=== PATIENT | female | born 1955 | race Caucasian/White ===

== ENCOUNTER 2016-10-02 06:35 | Day surgery (SDC) | payer OTHER ==
[~2016-10-02 06:35] MED LIST: Famotidine IV* 10 MG/ML 2 ML (20 mg) IV ONE
[2016-10-02] MEDS ORDERED: Lidocaine 1% MPF wEPI 200,000* 30 ML SDV ONE (07:11)
[2016-10-02] MEDS ORDERED: Famotidine IV* 10 MG/ML 2 ML (20 mg) ONE (07:16)
[2016-10-02] MEDS ORDERED: Midazolam* 1 MG/ML 5 ML VIAL (5 MG) ONE (07:42)
[2016-10-02] MEDS ORDERED: fentaNYL* 50 MCG/ML 2 ML VIAL (100 MCG VIAL) ONE (07:42)
[2016-10-02] MEDS ORDERED: KETAMINE HCL* 50 MG/ML 10 ML VIAL ONE (07:42)
[2016-10-02] MEDS ORDERED: ceFAZolin 2 GM PREMIX(*) 2 GM/50 ML BAG IVPB ONE (07:52)
[2016-10-02] MEDS ORDERED: PROCHLORPERAZINE INJ 5 MG/ML 2 ML VIAL IV PRN (08:09)
[2016-10-02] MEDS ORDERED: oxyCODONE TAB* 5 MG TAB PO PRN (08:09)
[2016-10-02] MEDS ORDERED: Ondansetron INJ* 2 MG/ML VIAL ONE (08:43)
[2016-10-02] MEDS ORDERED: Lidocaine 2% PF * 5 ML VIAL ONE (08:43)
[2016-10-02] MEDS ORDERED: PROCHLORPERAZINE INJ 5 MG/ML 2 ML VIAL ONE (08:43)
[2016-10-02] MEDS ORDERED: Propofol* 10 MG/ML 20 ML BTL IV PUSH ONE (08:43)
[2016-10-02] MEDS ORDERED: Dexamethasone IV* 4 MG/ML 1 ML (4 MG) ONE (08:43)
--- NOTE | 2016-10-02 08:54 | SURGPN ---
Brief Operative Note - Surgery Procedures: Procedures Pre-OP Diagnoses: Endometrioal Ca Post-op Diagnosis: same Procedure: Insertion of powerport, needle in Surgeon: Jackie Asst: none Anethesia: local, MAC Rumford EBL: minimal IVF: 600cc LR Specimen: none Drains: none 8Fr single lumen power port via R SCV
--- NOTE | 2016-10-02 09:12 | RAD ---
INDICATION: chest port placement COMPARISONS: None relevant TECHNIQUE: Fluoroscopy was provided for a vascular access procedure. Total fluoroscopy time is: 64.8 seconds FINDINGS: A single spot image demonstrates a right-sided chest port from a subclavian approach. The tip is not well visualized on the submitted images. IMPRESSION: FLUOROSCOPY WAS PROVIDED FOR A VASCULAR ACCESS PROCEDURE CPT II Codes: 6045F
[2016-10-02 10:11] VITALS: BP 116/64
--- NOTE | 2016-10-03 00:43 | OP ---
CC: Chuck Bahena MD; [facility]; Yanique Pacheco MD OPERATIVE REPORT: DATE OF OPERATION: 10/02/16 DATE OF : 51 SURGEON: Edu Mejia MD TENNIS INSTRUCTOR: None. ANESTHESIOLOGIST: Dr. Brewer. ANESTHESIA: Local MAC. PRE-OPERATIVE DIAGNOSIS: Recurrent endometrial cancer. POST-OPERATIVE DIAGNOSIS: Recurrent endometrial cancer. OPERATIVE PROCEDURE: Insertion of PowerPort needle. PORT: An 8-English PowerPort inserted via the right subclavian vein. COMPLICATIONS: None. DESCRIPTION OF PROCEDURE: The patient was identified in the preoperative area. The case was discuss ed and consent signed. She understood the risks, benefits, and alternatives. She was brought to [facility] operating room and placed on the operating table in a supine position. Preoperative antibiotics w ere given. Sequential devices were placed on bilateral lower extremities. Gentle sedation was give n and the patient's right upper neck and chest were prepped and draped in a standard surgical fashio n. A time-out was performed. The right subclavian vein was accessed and a wire inserted under fluoroscopy to ensure the positioni ng in the superior vena cava. An incision was made inferior to this and the pocket made for the por t. The wire was then brought into this incision and a split-away catheter inserted under fluoroscop y into the vein. An 8- English tubing was then inserted. The split-away catheter was removed. Tubi ng was cut to size ensuring this under fluoroscopy. This was then connected to the PowerPort and in serted into the pocket. Upon trying to place the hub onto the PowerPort, it pulled the tubing out a pproximately 2 to 3 cm, making this not in the appropriate position and the position was made to uti lize another PowerPort. The tubing was then cut, wire inserted under fluoroscopy. The remainder of the tubing removed. A new split-away catheter inserted and a new set of 8-English tubing inserted. It was again cut to size, placed on to the brand new PowerPort along with the hub and sutured into the pocket at the lateral, medial aspect, and at the hub. Wound was irrigated. The port was access ed. Blood was easily aspirated and then the port was flushed with saline. The defect was reapproxi mated with 3-0 Polysorb sutures followed by 4-0 Monocryl subcuticular suture. The Steri-Strips and sterile dressing was then applied. The port was then accessed. It aspirated the blood easily and t hen we flushed it with heparinized saline. The needle was remained in and then was dressed to the c hest wall with gauze and paper tape. The patient tolerated the procedure well and was transferred t o the PACU in stable condition. [id number] #: [id number]
== END 2016-10-02 10:07 | disposition home or self-care (01) ==
LOC: OR 06:35
PROVIDERS: ATTEND Surgery
DX: C54.1 Malignant neoplasm of endometrium (principal); J45.909 Unspecified asthma, uncomplicated
CPT/HCPCS: 71010; 76000; C1788; J0690; J0780; J1100; J1642; J2001; J2250; J2405; J2704; J3010

== ENCOUNTER 2017-06-29 14:08 | Emergency (ER) | payer OTHER ==
[2017-06-29] MEDS ORDERED: Ibuprofen TAB* 800 MG PO ONE (17:14)
[2017-06-29] MEDS ORDERED: Oseltamivir CAP* 75 MG CAP PO ONE ×2 (17:36→17:43)
[2017-06-29 17:58] VITALS: BP 137/63
--- NOTE | 2017-06-29 18:04 | ED ---
Influenza-Like Illness - HPI Summary HPI Summary: Flu like sx x 2 days. WILSON, rhinorrhea, dry cough, aches, fever. Denies n/v/d, CP , SOB, dizziness. Decreased appetite. Took ibuprofen this AM but not since as she didn't want to mask her sx before coming here. Has not had anything to eat/ drink since here either hwoever feels she could eat/drink. Med hx: endometrial CA initally tx'd last year - takes hormone modulator currently and followed by Dr. Bahena. No issues at this time. - History of Current Complaint Chief Complaint: EDFluSymptoms Time Seen by Provider: 06/29/17 16:26 Hx Obtained From: Patient - Allergy/Home Medications Allergies/Adverse Reactions: Allergies Allergy/AdvReac Type Severity Reaction Status Date / Time MS Erythromycin Allergy Intermediate Hives Verified 10/02/16 07:26 [Erythromycin] MS Hydrocodone [Hydrocodone] Allergy Intermediate Vomiting Verified 10/02/16 07: 26 Adhesive Tape Allergy Mild REDNESS Verified 10/02/16 07:26 MS Oxtriphylline Allergy Mild Nausea Verified 10/02/16 07:26 [From Choledyl] SEASONAL Allergy Congestion Uncoded 10/02/16 07:26 PMH/Surg Hx/FS Hx/Imm Hx Endocrine/Hematology History: Denies: Hx Diabetes, Hx Systemic Lupus Erythematosus Cardiovascular History: Denies: Hx Congestive Heart Failure, Hx Hypertension Respiratory History: Reports: Hx Asthma - borderline-hx of bronchitis GI History: Reports: Other GI Disorders - 3 yrs ago, with radiation tx, diarrhea History: Denies: Hx Dialysis, Hx Renal Disease Musculoskeletal History: Reports: Hx Arthritis - osteo, Other Musculoskeletal History - arthritis, pt states bad knees Denies: Hx Rheumatoid Arthritis, Hx Osteoporosis Sensory History: Reports: Hx Contacts or Glasses - wears glasses for distance Denies: Hx Hearing Aid Opthamlomology History: Reports: Hx Contacts or Glasses - wears glasses for distance - Cancer History Cancer Type, Location and Year: Endometrial Hx Chemotherapy: No - new diagnosis Endometrial Cancer 01/24 Hx Radiation Therapy: Yes - Surgical History Surgery Procedure, Year, and Place: breast cyst (pt says right lumpectomy), ovarian surgery (cyst),right rotator cuff surgery, tonsilectomy, wisdom teeth removal, total hysterectomy, tumors removed from abdomen Hx Anesthesia Reactions: No - nausea Infectious Disease History: No Infectious Disease History: Denies: Traveled Outside the [place] in Last 30 Days - Social History Alcohol Use: Weekly Alcohol Amount: 1-2 drinks per week Substance Use Type: Reports: None Smoking Status (MU): Never Smoked Tobacco Physical Exam Vital Signs On Initial Exam: Initial Vitals Temp Pulse Resp BP Pulse Ox 101.6 F 104 20 133/72 97 06/29/17 14:19 06/29/17 14:19 06/29/17 14:19 06/29/17 14:19 06/29/17 14:19 Diagnostics - Vital Signs Vital Signs Temp Pulse Resp BP Pulse Ox 06/29/17 17:57 100.4 F 100 20 137/63 06/29/17 14:19 101.6 F 104 20 133/72 97 - Laboratory Lab Results: Lab Results 06/29/17 Range/Units 17:03 Influenza A (Rapid) Positive H (Negative) Influenza B (Rapid) Negative (Negative) Lab Statement: Any lab studies that have been ordered have been reviewed, and results considered in the medical decision making process. Discharge - Discharge Plan Condition: Stable Disposition: HOME Prescriptions: Oseltamivir CAP* [Tamiflu CAP*] 75 mg PO BID #8 cap Patient Education Materials: Influenza (ED) Referrals: Yanique Pacheco MD [Primary Care Provider] - Additional Instructions: You may alternate acetaminophen and ibuprofen with food for pain, fever. You may also try the following to reduce symptoms: Perform nasal wash/netti pot 2 x day with 8 ounces of warm water + 1/4 teaspoon of salt or saline nasal spray as needed Perform throat gargles with warm salt water as needed Drink 60+ ounces of water daily Sleep 8+ hours per night Avoid Dairy and sugar Drink hot herbal/decaf tea with lemon & honey Drink chicken broth (preferably organic, free range chicken) Use a humidifier in your house, but especially near bed at night. You may also keep home temperature at 68F or less. Try a facial steam with or without eucalyptus essential oil or Bonifacio's vapor rub for decongestion. Avoid smoke, candles, perfumes/colonge, air fresheners, scented lotions, etc Consider taking Vitamin C 1,000mg every day during illness Follow-up with PCP if symptoms persist. *If worse, return to ED
== END 2017-06-29 17:57 | disposition home or self-care (01) ==
LOC: ED 14:08
DX: R05 Cough (principal); R51 Headache; R50.9 Fever, unspecified; Z88.3 Allergy status to other anti-infective agents; Z88.5 Allergy status to narcotic agent; Z88.8 Allergy status to other drugs, medicaments and biological substances
CPT/HCPCS: 87502; 99282; A9270-GY